=== PATIENT | female | born 1960 | race Caucasian/White ===

== ENCOUNTER 2020-10-13 23:21 | Emergency (ER) | payer OTHER ==
[~2020-10-13] VITALS: Ht 160 cm; Wt 54.4 kg
[~2020-10-13 23:21] MED LIST: FOSAMAX5 MG; ZOCOR5 MG PO
== END 2020-10-14 03:33 | disposition home or self-care (01) ==
LOC: ER 23:21
DX: D25.9 Leiomyoma of uterus, unspecified (principal); R10.31 Right lower quadrant pain

== ENCOUNTER 2021-02-09 11:36 | Emergency (ER) | payer OTHER ==
[~2021-02-09] VITALS: Ht 160 cm; Wt 54.4 kg
[2021-02-09] MEDS ORDERED: VITAMIN D310 MCG/1 M (12:12)
[2021-02-09] MEDS ORDERED: ZOCOR20 MG PO (14:37)
== END 2021-02-09 14:40 | disposition home or self-care (01) ==
LOC: ER 11:36
DX: T18.9XXA Foreign body of alimentary tract, part unspecified, initial encounter (principal); X58.XXXA Exposure to other specified factors, initial encounter; Y93.89 Activity, other specified; Y92.011 Dining room of single-family (private) house as the place of occurrence of the external cause; Z03.818 Encounter for observation for suspected exposure to other biological agents ruled out

== ENCOUNTER 2022-01-10 13:56 | Emergency (ER) | payer OTHER ==
[~2022-01-10] VITALS: Ht 160 cm; Wt 54.4 kg
[~2022-01-10 13:56] MED LIST changes: +VITAMIN D310 MCG/1 M; +ZOCOR20 MG PO
== END 2022-01-10 18:12 | disposition home or self-care (01) ==
LOC: ER 13:56
DX: U07.1 COVID-19 (principal); Z88.8 Allergy status to other drugs, medicaments and biological substances

== ENCOUNTER 2023-08-04 13:18 | Emergency (ER) | payer OTHER ==
[~2023-08-04] VITALS: Ht 160 cm; Wt 53.5 kg
== END 2023-08-04 18:50 | disposition home or self-care (01) ==
LOC: ER 13:18
DX: R10.9 Unspecified abdominal pain (principal)

== ENCOUNTER → 2025-01-08 | Emergency (ER) | payer OTHER ==
[~2025-01-08] VITALS: Ht 165.1 cm; Wt 65.8 kg
[~2025-01-08] MED LIST changes: +0.9 % SODIUM CHLORIDE 1,000 ML IV ONE; +BENZONATATE200 M1 PO; +CEFTRIAXONE SODIUM 1,000 MG VIAL IV ONE; +FAMOtidine 10 MG/ML (4ML VIAL) IV ONE; +KETO10TA2 PO; +KETOROLAC TROMETHAMINE 30 MG VIAL IV ONE; +LEVALBUTER0.63 MG/3 IH; +METHYLPREDNISOLONE SOD SUCC 125 MG VIAL IV ONE; +ONDANSETRON HCL 2 MG/ML VIAL IV ONE; +PEPCID AC20 MG PO; +SINGULAIR10 MG PO
[2025-01-08 13:11] LABS: BASO % 0.3 % (0.1-1.2); EOS # 0.01 (0.04-0.54); EOS % 0.1 % (0.7-7.0); LYMPH # 0.95 (1.18-3.74); LYMPH % 12.3 % (19.3-53.1); MEAN PLATELET VOLUME 10.70 fl (9.4-12.4); MONO # 0.94 (0.24-0.82); NEUT # 5.80 (1.56-6.13); NEUT % 74.9 % (34.0-71.1); RED CELL DISTRIBUTION WIDTH 13.1 % (11.6-14.4)
[2025-01-08 13:17] LABS: MONO % 12.1 % (4.7-12.5)
[2025-01-08 13:18] LABS: COVID-19 AG POSITIVE (NEGATIVE)
== END | disposition home or self-care (01) ==
LOC: ER 10:09
PROVIDERS: General Practice
DX: U07.1 COVID-19 (principal); J02.9 Acute pharyngitis, unspecified; E78.00 Pure hypercholesterolemia, unspecified